=== PATIENT | male | born 1990 | race Caucasian/White ===

== ENCOUNTER 2018-08-23 07:57 | Emergency (ER) | payer OTHER ==
[~2018-08-23] VITALS: Ht 188 cm; Wt 90.7 kg
[2018-08-23 08:13] VITALS: BP 141/82
--- NOTE | 2018-08-23 08:29 | PHYS DOC ---
Adult General Chief Complaint Chief Complaint: SORE THROAT HPI HPI 28-year-old male presents with left-sided neck pain. The patient has had URI symptoms of nasal congestion, facial tenderness, mild sore throat for 10 days. He feels like pressure in the sinuses has gotten a little worse last 24 hours. He also noticed an increased in swelling of the lymph node on the left side under his chin. He denies excruciating pain with swallowing. He's had no fever or chills at home. He has no other complaints. Review of Systems Review of Systems Constitutional: Denies fever or chills [] Eyes: Denies change in visual acuity, redness, or eye pain [] HENT: Nasal congestion or sore throat [] Respiratory: Denies cough or shortness of breath [] Cardiovascular: No additional information not addressed in HPI [] GI: Denies abdominal pain, nausea, vomiting, bloody stools or diarrhea [] : Denies dysuria or hematuria [] Musculoskeletal: Denies back pain or joint pain [] Integument: Denies rash or skin lesions [] Neurologic: Denies headache, focal weakness or sensory changes [] Endocrine: Denies polyuria or polydipsia [] All other systems were reviewed and found to be within normal limits, except as documented in this note. Physical Exam Physical Exam Constitutional: Well developed, well nourished, no acute distress, non-toxic appearance. [] HENT: Normocephalic, atraumatic, bilateral external ears normal, oropharynx moist, no oral exudates, nose normal. Left side of face appears slightly swollen compared to left.[] Eyes: PERRLA, EOMI, conjunctiva normal, no discharge. [] Neck: Normal range of motion, swollen left sided anterior lymph node with mild tenderness.[] Cardiovascular:Heart rate regular rhythm, no murmur [] Lungs & Thorax: Bilateral breath sounds clear to auscultation [] Abdomen: Bowel sounds normal, soft, no tenderness, no masses, no pulsatile masses. [] Skin: Warm, dry, no erythema, no rash. [] Back: No tenderness, no CVA tenderness. [] Extremities: No tenderness, no cyanosis, no clubbing, ROM intact, no edema. [] Neurologic: Alert and oriented X 3, normal motor function, normal sensory function, no focal deficits noted. [] Psychologic: Affect normal, judgement normal, mood normal. [] EKG EKG [] Radiology/Procedures Radiology/Procedures [] Course & Med Decision Making Course & Med Decision Making Pertinent Labs and Imaging studies reviewed. (See chart for details) Patient has had symptoms are greater than 10 days. Symptoms apparently worsening status and I will treat with Augmentin. If the symptoms do not improve by the end of his treatment, he'll follow-up with his PCP. [] Dragon Disclaimer Dragon Disclaimer This electronic medical record was generated, in whole or in part, using a voice recognition dictation system. Departure Departure: Referrals: PCP,UNKNOWN (PCP) SOSA GILLILAND DO Aug 23, 2018 08:29
[2018-08-23] MEDS ORDERED: AMOX1TAB61 PO (08:32)
== END 2018-08-23 08:35 | disposition home or self-care (01) ==
LOC: ER 07:57
DX: M54.2 Cervicalgia (principal); R09.81 Nasal congestion; J02.9 Acute pharyngitis, unspecified; R59.9 Enlarged lymph nodes, unspecified
CPT/HCPCS: 99283